=== PATIENT | female | born 1950 | race Caucasian/White ===

== ENCOUNTER 2021-03-31 11:38 | Inpatient (IN) | payer MEDICARE, MEDICAID ==
[~2021-03-31] VITALS: Ht 154.9 cm; Wt 61.4 kg
[~2021-03-31 11:38] MED LIST: ALBUTEROL; ETHA400T30; ISON300T19; LOSA50TA41; MOMETASONE; PYRI-5; RIFA300C4
[2021-03-31 12:48] LABS: BASOPHILS % 0.5 % (0.0-2.0); HEMATOCRIT. 38.8 % (36.0-48.0); HEMOGLOBIN. 12.2 g/dL (12.0-16.0); LYMPHOCYTES % 8.7 % (20.0-50.0); MEAN CORPUSCULAR HEMOGLOBIN 24.5 pg (28.0-32.0); MEAN CORPUSCULAR VOLUME 77.7 fL (81.0-99.0); MEAN PLATELET VOLUME 9.1 fl (7.4-10.4); MONOCYTES % 5.6 % (2.0-8.0); NEUTROPHILS % 84.2 % (40.0-76.0); PLATELET 299 x1000/uL (130-400); RED BLOOD CELL COUNT 4.99 mill/uL (4.2-5.4); RED CELL DISTRIBUTION WIDTH 16.4 % (11.6-14.6)
[2021-03-31 13:00] LABS: CHLORIDE 103 mEq/L (98-107)
[2021-03-31] MEDS ORDERED: DOXYCYCLINE 100 MG in DEXT 5% WATER 100 ML IV SCH (13:00)
[2021-03-31] MEDS ORDERED: CEFTRIAXONE 1 G PREMIX 50 ML IV ONE (13:00)
[2021-03-31] MEDS ORDERED: CLONIDINE 0.1MG TABLET PO PRN (15:15)
[2021-03-31] MEDS ORDERED: DOXYCYCLINE 100 MG in DEXT 5% WATER 100 ML IV NR (15:45)
[2021-03-31 16:00] VITALS: BP 125/69
[2021-03-31 16:50] VITALS: BP 125/69
[2021-03-31] MEDS ORDERED: ATOR20TA65 MT (17:11)
[2021-03-31] MEDS: ENOXAPARIN 30MG/0.3ML SYR SUBCUT SCH (17:52)
[2021-03-31] MEDS ORDERED: PNEUMOCOCCAL 23-VAL P-SAC VAC 0.5 ML IM ONE (18:00)
[2021-03-31 20:00] VITALS: BP 116/60
[2021-03-31 20:33] LABS: CHLORIDE 104 mEq/L (98-107)
[2021-04-01] VITALS: BP 137/59
[2021-04-01 04:00] VITALS: BP 102/44
[2021-04-01] MEDS: ACETAMINOPHEN 325MG TABLET PO PRN (04:01)
[2021-04-01 05:34] LABS: BASOPHILS % 0.6 % (0.0-2.0); EOSINOPHILS % 2.8 % (0.0-5.0); HEMATOCRIT. 34.7 % (36.0-48.0); HEMOGLOBIN. 10.9 g/dL (12.0-16.0); LYMPHOCYTES % 12.9 % (20.0-50.0); MEAN CORPUSCULAR HEMOGLOBIN 24.4 pg (28.0-32.0); MEAN CORPUSCULAR VOLUME 77.6 fL (81.0-99.0); MEAN PLATELET VOLUME 9.2 fl (7.4-10.4); MONOCYTES % 7.2 % (2.0-8.0); NEUTROPHILS % 76.5 % (40.0-76.0); PLATELET 266 x1000/uL (130-400); RED BLOOD CELL COUNT 4.47 mill/uL (4.2-5.4); RED CELL DISTRIBUTION WIDTH 16.9 % (11.6-14.6)
[2021-04-01 08:00] VITALS: BP 172/99
[2021-04-01] MEDS ORDERED: CEFTRIAXONE 1 G PREMIX 50 ML IV SCH (09:00)
[2021-04-01] MEDS ORDERED: DOXYCYCLINE 100 MG in DEXT 5% WATER 100 ML IV SCH (09:00)
[2021-04-01] MEDS: DOXYCYCLINE 100 MG in DEXT 5% WATER 100 ML IV SCH ×2 (11:07→21:05)
[2021-04-01 11:33] LABS: CLARITY URINE CLEAR (CLEAR); COLOR URINE YELLOW (YELLOW); KETONES URINE NEGATIVE (NEGATIVE); LEUKOCYTE ESTERASE URINE 2+ (NEGATIVE); NITRITE URINE NEGATIVE (NEGATIVE); OCCULT BLOOD URINE 3+ (NEGATIVE); PH URINE 5.5 (4.5-8.0); PROTEIN URINE 1+ (NEGATIVE); SPECIFIC GRAVITY URINE 1.012 (1.005-1.030); UROBILINOGEN URINE 0.2 E.U./dL (0.2-1.0)
[2021-04-01 12:00] VITALS: BP 99/60
[2021-04-01] MEDS: CEFTRIAXONE 1,000 MG in DEXTROSE 5% WATER 50 ML IV SCH (13:05)
[2021-04-01] MEDS: AMLODIPINE 5MG TABLET PO SCH (13:45)
[2021-04-01 16:00] VITALS: BP 100/60
[2021-04-01] MEDS: ACETYLCYSTEINE 100MG/ML 10% VIAL 4ML INH SCH (16:08)
[2021-04-01] MEDS: IPRATROPIUM/ALBUTEROL 0.5-3(2.5)MG/3ML NEB HHN SCH ×2 (16:08→21:52)
[2021-04-01] MEDS: ENOXAPARIN 30MG/0.3ML SYR SUBCUT SCH (16:36)
[2021-04-01] MEDS ORDERED: INFLUENZA VACCINE 05/PF 0.5 ML SYRINGE IM ONE (18:00)
[2021-04-01 20:00] VITALS: BP 93/56
[2021-04-02] VITALS: BP 102/60
[2021-04-02] MEDS: IPRATROPIUM/ALBUTEROL 0.5-3(2.5)MG/3ML NEB HHN SCH ×6 (00:17→20:49)
[2021-04-02] MEDS: ACETYLCYSTEINE 100MG/ML 10% VIAL 4ML INH SCH ×3 (00:17→17:23)
[2021-04-02 04:00] VITALS: BP 113/56
[2021-04-02 06:31] LABS: BASOPHILS % 0.5 % (0.0-2.0); EOSINOPHILS % 3.2 % (0.0-5.0); HEMATOCRIT. 34.2 % (36.0-48.0); HEMOGLOBIN. 10.6 g/dL (12.0-16.0); MEAN CORPUSCULAR HEMOGLOBIN 24.6 pg (28.0-32.0); MEAN CORPUSCULAR VOLUME 79.4 fL (81.0-99.0); MEAN PLATELET VOLUME 9.1 fl (7.4-10.4); MONOCYTES % 6.9 % (2.0-8.0); NEUTROPHILS % 73.4 % (40.0-76.0); PLATELET 244 x1000/uL (130-400); RED CELL DISTRIBUTION WIDTH 16.7 % (11.6-14.6)
[2021-04-02 07:20] LABS: PHOSPHORUS 4.1 mg/dL (2.5-4.9)
[2021-04-02 08:00] VITALS: BP 120/61
[2021-04-02] MEDS: DOXYCYCLINE 100 MG in DEXT 5% WATER 100 ML IV SCH ×2 (08:56→20:04)
[2021-04-02] MEDS: AMLODIPINE 5MG TABLET PO SCH (08:56)
[2021-04-02 11:43] VITALS: BP 116/64
[2021-04-02] MEDS: CEFTRIAXONE 1,000 MG in DEXTROSE 5% WATER 50 ML IV SCH (13:05)
[2021-04-02] MEDS: THROAT LOZENGES-BENZOCAINE/MENTH/CETYLPYRD CL LOZENGES MM PRN ×2 (13:06→20:12)
[2021-04-02] MEDS: ENOXAPARIN 30MG/0.3ML SYR SUBCUT SCH (15:52)
[2021-04-02 16:02] VITALS: BP 96/54
[2021-04-02 20:00] VITALS: BP 110/64
[2021-04-02] MEDS: ACETAMINOPHEN 325MG TABLET PO PRN (20:11)
[2021-04-03] VITALS: BP 112/61
[2021-04-03] MEDS: ACETYLCYSTEINE 100MG/ML 10% VIAL 4ML INH SCH ×3 (02:14→16:38)
[2021-04-03] MEDS: IPRATROPIUM/ALBUTEROL 0.5-3(2.5)MG/3ML NEB HHN SCH ×6 (02:15→20:30)
[2021-04-03 04:00] VITALS: BP 105/61
[2021-04-03 06:55] LABS: BASOPHILS % 0.7 % (0.0-2.0); EOSINOPHILS % 4.8 % (0.0-5.0); HEMATOCRIT. 32.4 % (36.0-48.0); HEMOGLOBIN. 10.3 g/dL (12.0-16.0); LYMPHOCYTES % 20.2 % (20.0-50.0); MEAN CORPUSCULAR HEMOGLOBIN 24.9 pg (28.0-32.0); MEAN CORPUSCULAR VOLUME 78.2 fL (81.0-99.0); MEAN PLATELET VOLUME 9.6 fl (7.4-10.4); MONOCYTES % 7.2 % (2.0-8.0); NEUTROPHILS % 67.1 % (40.0-76.0); PLATELET 274 x1000/uL (130-400); RED BLOOD CELL COUNT 4.14 mill/uL (4.2-5.4); RED CELL DISTRIBUTION WIDTH 16.4 % (11.6-14.6)
[2021-04-03 07:09] LABS: PHOSPHORUS 4.6 mg/dL (2.5-4.9)
[2021-04-03 08:00] VITALS: BP 103/59
[2021-04-03] MEDS: AMLODIPINE 5MG TABLET PO SCH (08:25)
[2021-04-03] MEDS: DOXYCYCLINE 100 MG in DEXT 5% WATER 100 ML IV SCH ×2 (08:25→22:33)
[2021-04-03] MEDS: CEFTRIAXONE 1,000 MG in DEXTROSE 5% WATER 50 ML IV SCH (11:59)
[2021-04-03] MEDS: THROAT LOZENGES-BENZOCAINE/MENTH/CETYLPYRD CL LOZENGES MM PRN (11:59)
[2021-04-03 12:00] VITALS: BP 110/76
[2021-04-03 16:00] VITALS: BP 109/89
[2021-04-03] MEDS: ENOXAPARIN 30MG/0.3ML SYR SUBCUT SCH (16:02)
[2021-04-03 20:00] VITALS: BP 108/60
[2021-04-04] VITALS: BP 119/63
[2021-04-04] MEDS: IPRATROPIUM/ALBUTEROL 0.5-3(2.5)MG/3ML NEB HHN SCH ×5 (01:58→20:12)
[2021-04-04] MEDS: ACETYLCYSTEINE 100MG/ML 10% VIAL 4ML INH SCH ×3 (01:58→12:46)
[2021-04-04 04:00] VITALS: BP 134/68
[2021-04-04 08:00] VITALS: BP 105/56
[2021-04-04 08:25] LABS: BASOPHILS % 0.7 % (0.0-2.0); EOSINOPHILS % 3.6 % (0.0-5.0); HEMATOCRIT. 35.7 % (36.0-48.0); HEMOGLOBIN. 11.1 g/dL (12.0-16.0); LYMPHOCYTES % 12.5 % (20.0-50.0); MEAN CORPUSCULAR HEMOGLOBIN 24.6 pg (28.0-32.0); MEAN CORPUSCULAR VOLUME 78.7 fL (81.0-99.0); MONOCYTES % 7.1 % (2.0-8.0); NEUTROPHILS % 76.1 % (40.0-76.0); PLATELET 295 x1000/uL (130-400); RED BLOOD CELL COUNT 4.53 mill/uL (4.2-5.4); RED CELL DISTRIBUTION WIDTH 16.3 % (11.6-14.6)
[2021-04-04] MEDS: AMLODIPINE 5MG TABLET PO SCH (09:00)
[2021-04-04] MEDS: DOXYCYCLINE 100 MG in DEXT 5% WATER 100 ML IV SCH ×2 (09:12→20:21)
[2021-04-04 12:00] VITALS: BP 131/74
[2021-04-04] MEDS: CEFTRIAXONE 1,000 MG in DEXTROSE 5% WATER 50 ML IV SCH (12:03)
[2021-04-04] MEDS ORDERED: LEVO750T46 PO (15:35)
[2021-04-04 16:00] VITALS: BP 100/62
[2021-04-04] MEDS: ENOXAPARIN 30MG/0.3ML SYR SUBCUT SCH (17:20)
[2021-04-04 20:00] VITALS: BP 109/62
[2021-04-05] VITALS: BP 123/70
[2021-04-05 04:00] VITALS: BP 124/58
[2021-04-05] MEDS: IPRATROPIUM/ALBUTEROL 0.5-3(2.5)MG/3ML NEB HHN SCH ×5 (04:28→22:05)
[2021-04-05 08:00] VITALS: BP 122/63
[2021-04-05] MEDS: DOXYCYCLINE 100 MG in DEXT 5% WATER 100 ML IV SCH (08:21)
[2021-04-05] MEDS: THROAT LOZENGES-BENZOCAINE/MENTH/CETYLPYRD CL LOZENGES MM PRN (08:21)
[2021-04-05] MEDS: AMLODIPINE 5MG TABLET PO SCH (08:21)
[2021-04-05] MEDS: ACETYLCYSTEINE 100MG/ML 10% VIAL 4ML INH SCH ×2 (09:21→16:44)
[2021-04-05 12:00] VITALS: BP 131/68
[2021-04-05] MEDS: CEFTRIAXONE 1,000 MG in DEXTROSE 5% WATER 50 ML IV SCH (13:20)
[2021-04-05 16:00] VITALS: BP 122/59
[2021-04-05] MEDS: CEFEPIME 1,000 MG in DEXTROSE 5% WATER 50 ML IV SCH (16:53)
[2021-04-05] MEDS: ENOXAPARIN 30MG/0.3ML SYR SUBCUT SCH (16:54)
[2021-04-05 20:00] VITALS: BP 121/88
[2021-04-06] VITALS: BP 109/60
[2021-04-06] MEDS: IPRATROPIUM/ALBUTEROL 0.5-3(2.5)MG/3ML NEB HHN SCH ×6 (00:32→20:34)
[2021-04-06] MEDS: ACETYLCYSTEINE 100MG/ML 10% VIAL 4ML INH SCH ×3 (00:32→15:11)
[2021-04-06] MEDS: CEFEPIME 1,000 MG in DEXTROSE 5% WATER 50 ML IV SCH ×2 (03:59→15:39)
[2021-04-06 04:00] VITALS: BP 110/63
[2021-04-06 07:17] LABS: BASOPHILS % 0.8 % (0.0-2.0); EOSINOPHILS % 4.3 % (0.0-5.0); LYMPHOCYTES % 17.8 % (20.0-50.0); MEAN CORPUSCULAR HEMOGLOBIN 24.5 pg (28.0-32.0); MEAN CORPUSCULAR VOLUME 78.1 fL (81.0-99.0); MEAN PLATELET VOLUME 9.2 fl (7.4-10.4); NEUTROPHILS % 70.1 % (40.0-76.0); PLATELET 316 x1000/uL (130-400); RED BLOOD CELL COUNT 4.48 mill/uL (4.2-5.4); RED CELL DISTRIBUTION WIDTH 16.3 % (11.6-14.6)
[2021-04-06 08:00] VITALS: BP 127/67
[2021-04-06] MEDS: AMLODIPINE 5MG TABLET PO SCH (09:07)
[2021-04-06 12:00] VITALS: BP 118/74
[2021-04-06] MEDS: ENOXAPARIN 30MG/0.3ML SYR SUBCUT SCH (15:39)
[2021-04-06 16:00] VITALS: BP 104/55
[2021-04-06 20:00] VITALS: BP 109/62
[2021-04-06] MEDS: ACETAMINOPHEN 325MG TABLET PO PRN (22:05)
[2021-04-07] VITALS: BP 115/68
[2021-04-07] MEDS: IPRATROPIUM/ALBUTEROL 0.5-3(2.5)MG/3ML NEB HHN SCH ×6 (00:42→20:44)
[2021-04-07 04:00] VITALS: BP 121/60
[2021-04-07] MEDS: CEFEPIME 1,000 MG in DEXTROSE 5% WATER 50 ML IV SCH ×2 (04:04→17:31)
[2021-04-07 08:00] VITALS: BP 112/63
[2021-04-07] MEDS: AMLODIPINE 5MG TABLET PO SCH (08:32)
[2021-04-07 12:00] VITALS: BP 101/58
[2021-04-07 12:35] LABS: HEMATOCRIT 35.2 % (36.0-48.0); HEMOGLOBIN 11.3 g/dL (12.0-16.0); MEAN CORPUSCULAR HEMOGLOBIN 24.9 pg (28.0-32.0); MEAN CORPUSCULAR VOLUME 77.5 fL (81.0-99.0); PLATELET 243 x1000/uL (130-400); RED BLOOD CELL COUNT 4.53 mill/uL (4.2-5.4); RED CELL DISTRIBUTION WIDTH 16.5 % (11.6-14.6)
[2021-04-07 16:00] VITALS: BP 114/55
[2021-04-07] MEDS: ENOXAPARIN 30MG/0.3ML SYR SUBCUT SCH (17:31)
[2021-04-07 20:00] VITALS: BP 112/70
[2021-04-08] VITALS: BP 121/79
[2021-04-08] MEDS: IPRATROPIUM/ALBUTEROL 0.5-3(2.5)MG/3ML NEB HHN SCH ×4 (00:56→21:23)
[2021-04-08 04:00] VITALS: BP 107/61
[2021-04-08] MEDS: CEFEPIME 1,000 MG in DEXTROSE 5% WATER 50 ML IV SCH ×2 (04:02→16:01)
[2021-04-08 08:00] VITALS: BP 105/53
[2021-04-08] MEDS: AMLODIPINE 5MG TABLET PO SCH (09:00)
[2021-04-08 12:00] VITALS: BP 108/57
[2021-04-08 16:00] VITALS: BP 116/61
[2021-04-08] MEDS: ENOXAPARIN 30MG/0.3ML SYR SUBCUT SCH (16:02)
[2021-04-08 20:00] VITALS: BP 124/55
[2021-04-09] VITALS: BP 112/54
[2021-04-09] MEDS: IPRATROPIUM/ALBUTEROL 0.5-3(2.5)MG/3ML NEB HHN SCH ×6 (01:14→21:29)
[2021-04-09 04:00] VITALS: BP 121/66
[2021-04-09] MEDS: CEFEPIME 1,000 MG in DEXTROSE 5% WATER 50 ML IV SCH ×2 (04:02→16:24)
[2021-04-09 08:00] VITALS: BP 99/54
[2021-04-09] MEDS: AMLODIPINE 5MG TABLET PO SCH (09:00)
[2021-04-09 12:00] VITALS: BP 111/55
[2021-04-09 16:00] VITALS: BP 109/54
[2021-04-09] MEDS: ENOXAPARIN 30MG/0.3ML SYR SUBCUT SCH (16:24)
[2021-04-09 20:00] VITALS: BP 127/69
[2021-04-09] MEDS: ACETAMINOPHEN 325MG TABLET PO PRN (20:33)
[2021-04-10] VITALS: BP 113/59
[2021-04-10] MEDS: IPRATROPIUM/ALBUTEROL 0.5-3(2.5)MG/3ML NEB HHN SCH ×5 (00:47→15:57)
[2021-04-10 04:00] VITALS: BP 112/63
[2021-04-10] MEDS: CEFEPIME 1,000 MG in DEXTROSE 5% WATER 50 ML IV SCH ×2 (05:12→15:43)
[2021-04-10 08:00] VITALS: BP 110/65
[2021-04-10] MEDS: AMLODIPINE 5MG TABLET PO SCH (08:20)
[2021-04-10 12:00] VITALS: BP 112/61
[2021-04-10 14:33] VITALS: BP 112/61
[2021-04-10] MEDS: ENOXAPARIN 30MG/0.3ML SYR SUBCUT SCH (15:42)
[2021-04-10 16:00] VITALS: BP 105/60
== END 2021-04-10 17:59 | disposition home health service (06) | DRG 871 ==
LOC: ER 11:38 → 7EST 14:04 → EDBEDREQ 14:15 → ENRESERV 15:46
PROVIDERS: ADMIT Family Medicine Adult Medicine; ATTEND Family Medicine Adult Medicine
PROC: 02HV33Z Insertion of Infusion Device into Superior Vena Cava, Percutaneous Approach (ICD-10-PCS; principal; 2021-04-06)
PROC: B518ZZA Fluoroscopy of Superior Vena Cava, Guidance (ICD-10-PCS; 2021-04-06)
PROC: B548ZZA Ultrasonography of Superior Vena Cava, Guidance (ICD-10-PCS; 2021-04-06)
DX: A41.9 Sepsis, unspecified organism (principal); J96.21 Acute and chronic respiratory failure with hypoxia; J15.6 Pneumonia due to other Gram-negative bacteria; J15.1 Pneumonia due to Pseudomonas; J47.0 Bronchiectasis with acute lower respiratory infection; E44.1 Mild protein-calorie malnutrition; J84.9 Interstitial pulmonary disease, unspecified; N17.9 Acute kidney failure, unspecified; E78.5 Hyperlipidemia, unspecified; N18.30 Chronic kidney disease, stage 3 unspecified; I12.9 Hypertensive chronic kidney disease with stage 1 through stage 4 chronic kidney disease, or unspecified chronic kidney disease; K57.90 Diverticulosis of intestine, part unspecified, without perforation or abscess without bleeding; Z20.822 Contact with and (suspected) exposure to COVID-19; Z87.01 Personal history of pneumonia (recurrent); Z86.19 Personal history of other infectious and parasitic diseases; Z82.49 Family history of ischemic heart disease and other diseases of the circulatory system; Z86.11 Personal history of tuberculosis; Z79.899 Other long term (current) drug therapy; Z68.25 Body mass index [BMI] 25.0-25.9, adult
CPT/HCPCS: 36415; 36573; 71045; 71250; 76770; 80048; 80053; 81003; 82550; 83605; 83735; 83880; 84100; 84145; 84484; 85025; 85027; 87070; 87077; 87186; 87426; 90686; 93005; 94640; 94667; 97161; 99285; C1725; C1893; J0692; J0696; J1650; J3490; J7040; J7060; J7608